=== PATIENT | male | born 1970 | race Two or more races ===

== ENCOUNTER 2017-03-14 16:22 | Emergency (ER) | payer SELFPAY ==
[~2017-03-14] VITALS: Ht 177.8 cm; Wt 90.0 kg
[2017-03-14 19:45] VITALS: BP 148/96
[2017-03-14] MEDS ORDERED: SODIUM CHLORIDE 0.9% 1,000 ML IV ONE (20:43)
== END 2017-03-14 21:05 | disposition left against medical advice (07) ==
LOC: ER 19:49 → CANBEDREQ 22:51
DX: R04.2 Hemoptysis (principal); F17.200 Nicotine dependence, unspecified, uncomplicated; Z85.05 Personal history of malignant neoplasm of liver; Z86.19 Personal history of other infectious and parasitic diseases
CPT/HCPCS: 99281; Z7610; J7030